=== PATIENT | male | born 1995 | race African-American/Black ===

== ENCOUNTER 2017-11-21 02:54 | Emergency (ER) | payer SELFPAY ==
[2017-11-21 03:22] VITALS: BP 133/80; PULSE 55; TEMP 97.7; BMI 23.1
--- NOTE | 2017-11-21 03:54 | PDOC ---
History of Present Illness - General History Source: Patient Exam Limitations: No Limitations - History of Present Illness Initial Comments: 11/21/17 03:59 The patient is a 22 year old male, with no significant past medical history, who presents to the emergency department with pain across his lower anterior chest radiating through to the middle of his back, nausea, and vomiting. He describes the pain as a tearing, ripping pain that starts as a band across his lower chest and extends through to the area between his scapulas. He reports the pain is 10/10 at its worse and denies relief with OTC pain medication. Secondarily, he states he felt bloated about 2 days ago, however, reports one episode of diarrhea since the onset of this chest pain. He states he was diagnosed at [facility] for gastritis about 3 days ago and prescribed something with a 'T'." The patient reports nausea and non bloody vomiting for the past couple of days. The patient denies chest pain, shortness of breath, headache and dizziness. The patient denies fever, chills and constipation. The patient denies dysuria, frequency, urgency and hematuria. Allergies: NKDA Social History: smokes marijuana frequently <Myriam Leggett - Last Filed: 11/21/17 04:21> - General History Source: Patient <CristianDarien garcia - Last Filed: 11/25/17 19:41> - General Chief Complaint: Pain Stated Complaint: BODY PAIN Time Seen by Provider: 11/21/17 03:08 Past History <Myriam Leggett - Last Filed: 11/21/17 04:21> - Past Medical History Psychiatric Problems: Yes (BIPOLAR, DEPRESSION) - Suicide/Smoking/Psychosocial Hx Smoking Status: No Smoking History: Never smoked Have you smoked in the past 12 months: No Number of Cigarettes Smoked Daily: 1 Information on smoking cessation initiated: No 'Breaking Loose' booklet given: 01/27/15 Hx Alcohol Use: No Drug/Substance Use Hx: No Substance Use Type: None <Darien Fowler - Last Filed: 11/25/17 19:41> - Past Medical History Allergies/Adverse Reactions: Allergies Allergy/AdvReac Type Severity Reaction Status Date / Time No Known Allergies Allergy Verified 11/21/17 03:14 Home Medications: Ambulatory Orders NK [No Known Home Medication] 01/27/15 Review of Systems - Review of Systems Able to Perform ROS?: Yes Comments:: 11/21/17 03:59 CONSTITUTIONAL: Absent: fever, chills, diaphoresis, generalized weakness, malaise, loss of appetite HEENT: Absent: rhinorrhea, nasal congestion, throat pain, throat swelling, difficulty swallowing, mouth swelling, ear pain, eye pain, visual Changes CARDIOVASCULAR: (+) lower anterior chest pain, Absent: syncope, palpitations, irregular heart rate, lightheadedness, peripheral edema RESPIRATORY: Absent: cough, shortness of breath, dyspnea with exertion, orthopnea, wheezing, stridor, hemoptysis GASTROINTESTINAL: (+) nausea, vomiting, diarrhea, Absent: abdominal pain. abdominal distension, melena, hematochezia, constipation, GENITOURINARY: Absent: dysuria, frequency, urgency, hesitancy, hematuria, flank pain, genital pain MUSCULOSKELETAL: (+) midscapular pain. Absent: arthralgia, joint swelling SKIN: Absent: rash, itching, pallor HEMATOLOGIC/IMMUNOLOGIC: Absent: easy bleeding, easy bruising, lymphadenopathy, frequent infections ENDOCRINE: Absent: unexplained weight gain, unexplained weight loss, heat intolerance, cold intolerance NEUROLOGIC: Absent: headache, focal weakness or paresthesias, dizziness, unsteady gait, seizure, mental status changes, bladder or bowel incontinence PSYCHIATRIC: Absent: anxiety, depression, suicidal or homicidal ideation, hallucinations. <Myriam Leggett - Last Filed: 11/21/17 04:21> *Physical Exam - Vital Signs Last Vital Signs Temp Pulse Resp BP Pulse Ox 97.7 F 55 L 20 133/80 100 11/21/17 03:14 11/21/17 03:14 11/21/17 03:14 11/21/17 03:14 11/21/17 03:14 - Physical Exam Comments: 11/21/17 04:00 GENERAL: Well developed, well nourished. Awake and alert. No acute distress. HEENT: Normocephalic, atraumatic. PERRLA, EOMI. No conjunctival pallor. Sclera are non- icteric. Moist mucous membranes. Oropharynx is clear. NECK: Supple. Full ROM. No JVD. Carotid pulses 2+ and symmetric, without bruits. No thyromegaly. No lymphadenopathy. CARDIOVASCULAR: Regular rate and rhythm. No murmurs, rubs, or gallops. Distal pulses are 2+ and symmetric. PULMONARY: No evidence of respiratory distress. Lungs clear to auscultation bilaterally. No wheezing, rales or rhonchi. ABDOMINAL: Soft. Non-tender. Non-distended. No rebound or guarding. No organomegaly. Normoactive bowel sounds. MUSCULOSKELETAL Normal range of motion at all joints. No bony deformities or tenderness. No CVA tenderness. EXTREMITIES: No cyanosis. No clubbing. No edema. No calf tenderness. SKIN: Warm and dry. Normal capillary refill. No rashes. No jaundice. NEUROLOGICAL: Alert, awake, appropriate. Cranial nerves 2-12 intact. Normoreflexic in the upper and lower extremities. Normal speech. Toes are down-going bilaterally. Gait is normal without ataxia. PSYCHIATRIC: Cooperative. Good eye contact. Appropriate mood and affect. <Myriam Leggett - Last Filed: 11/21/17 04:21> - Vital Signs Last Vital Signs Temp Pulse Resp BP Pulse Ox 97.7 F 55 L 20 133/80 100 11/21/17 03:14 11/21/17 03:14 11/21/17 03:14 11/21/17 03:14 11/21/17 03:14 <Darien Fowler - Last Filed: 11/25/17 19:41> Heart Score/ECG Review - ECG Intrepretation Comment:: 11/21/17 04:11 EKG was read by Dr. Fowler at 4:03 Impression: Sinus bradycardia, Voltage criteria for left ventricular hypertrophy , Nonspecific ST and T wave abnormality. Vent. Rate: 57 bpm NV Interval: 160 ms QTc: 404 ms <Myriam Leggett - Last Filed: 11/21/17 04:21> ED Treatment Course - LABORATORY CBC & Chemistry Diagram: 11/21/17 04:15 11/21/17 04:15 <Darien Fowler - Last Filed: 11/25/17 19:41> Medical Decision Making - Medical Decision Making 11/25/17 19:41 Dr. Fowler: The scribe's documentation has been prepared under my direction and personally reviewed by me in its entirery. I confirm that the note above accurately reflects all work, treatment, procedures, and medical decision making performed by me. <Darien Fowler - Last Filed: 11/25/17 19:41> *DC/Admit/Observation/Transfer - Attestations Scribe Attestion: 11/21/17 04:01 Documentation prepared by Myriam Leggett, acting as medical technicians for Darien Fowler DO. <Myriam Leggett - Last Filed: 11/21/17 04:21> - Discharge Dispostion Admit: No <Darien Fowler - Last Filed: 11/25/17 19:41> Diagnosis at time of Disposition: Chest pain Qualifiers: Chest pain type: unspecified Qualified Code(s): R07.9 - Chest pain, unspecified - Discharge Dispostion Disposition: HOME Condition at time of disposition: Stable - Patient Instructions Printed Discharge Instructions: DI for Chest Pain Additional Instructions: avoid smoking as mush as possible. Take Motrin 800mg over the counter as directed. Return if any problems.
[2017-11-21] MEDS ORDERED: PROMETHAZINE HCL 25 MG TABLET PO ONE (03:56)
[2017-11-21] MEDS ORDERED: KETOROLAC TROMETHAMINE 30 MG/1 ML VIAL IVPUSH ONE (04:12)
[2017-11-21] MEDS ORDERED: KETOROLAC TROMETHAMINE 30 MG/1 ML VIAL ONE (04:15)
[2017-11-21 04:49] LABS: BASO % 0.4 % (0-2.0); EOS % 0.4 % (0-4.5); HEMATOCRIT 41.8 % (35.4-49); LYMPH % 28.4 % (8-40); MCH 31.1 pg (25.7-33.7); MCHC 33.4 g/dl (32.0-35.9); MEAN CELL VOLUME 92.9 fl (80-96); MEAN PLT VOLUME 8.3 fl (7.5-11.1); MONO % 9.9 % (3.8-10.2); NEUT % 60.9 % (42.8-82.8); PLATELET COUNT 200 K/MM3 (134-434); RDW 13.6 % (11.9-15.9); WHITE BLOOD COUNT 6.7 K/mm3 (4.0-10.0)
[2017-11-21 05:08] LABS: INR 1.27 (0.82-1.09)
[2017-11-21 05:18] LABS: D-DIMER < 200 ng/ml (0-500)
[2017-11-21 05:31] LABS: ALBUMIN 4.8 g/dl (3.4-5.0); ANION GAP 8 (8-16); BLOOD UREA NITROGEN 19 mg/dL (7-18); CALCIUM 9.3 mg/dL (8.5-10.1); CHLORIDE 105 mmol/L (98-107); CO2 28 mmol/L (21-32); CREATININE 0.9 mg/dL (0.7-1.3); GLUCOSE,RANDOM 83 mg/dL (74-106); POTASSIUM 3.8 mmol/L (3.5-5.1); SGOT/AST 15 U/L (15-37); SGPT/ALT 18 U/L (12-78); SODIUM 141 mmol/L (136-145)
[2017-11-21 05:32] LABS: ALK PHOS 61 U/L (45-117); BILIRUBIN,TOTAL 1.3 mg/dL (0.2-1.0)
--- NOTE | 2017-11-21 14:08 | EKG ---
Test Reason : Blood Pressure : / mmHG Vent. Rate : 057 BPM Atrial Rate : 057 BPM P-R Int : 160 ms QRS Dur : 094 ms QT Int : 416 ms P-R-T Axes : 072 079 063 degrees QTc Int : 404 ms SINUS BRADYCARDIA VOLTAGE CRITERIA FOR LEFT VENTRICULAR HYPERTROPHY NONSPECIFIC ST AND T WAVE ABNORMALITY ABNORMAL ECG NO PREVIOUS ECGS AVAILABLE Confirmed by ELIZABETH CAMP MD ([id number]) on 11/21/2017 2:07:36 PM Referred By: Confirmed By:ELIZABETH CAMP MD
== END 2017-11-21 07:12 | disposition home or self-care (01) ==
LOC: JER 02:54
PROC: 3E0333Z Introduction of Anti-inflammatory into Peripheral Vein, Percutaneous Approach (ICD-10-PCS; principal; 2017-11-21)
DX: R07.89 Other chest pain (principal)
CPT/HCPCS: 36415; 80053; 82550; 84484; 85025; 85379; 85610; 93005; 93010; 99282-25